=== PATIENT | female | born 1990 | race Caucasian/White ===

== ENCOUNTER 2021-03-23 15:48 | Emergency (ER) | payer OTHER ==
[~2021-03-23] VITALS: Ht 162.6 cm; Wt 66.8 kg
--- NOTE | 2021-03-23 16:28 | REP ---
INDICATION: fall/unwitnessed. COMPARISON: None. TECHNIQUE: Helical scanning is acquired and overlapping 2 mm high resolution axial images were generated and reviewed at bone and soft tissue window settings. Coronal and sagittal multiplanar re-formations images are generated. FINDINGS: There is no evidence of cervical spine element fracture. No skull base fracture is seen. Cervical vertebral body heights are preserved. Alignment is normal. Facet joints are normally aligned bilaterally at each cervical level on multiplanar re-formations images. There is no evidence of intraspinal or paraspinal hematoma. No extra vertebral abnormality is seen. IMPRESSION: Negative CT study of the cervical spine without contrast. No fracture seen. <Electronically signed by Goran Lipscomb > 03/23/21 [id number]
--- NOTE | 2021-03-23 16:49 | REP ---
INDICATION: syncope/unwitnssed. COMPARISON: None. TECHNIQUE: Helical scanning is acquired. 5 mm axial images were reformatted. Coronal MPR images were generated. FINDINGS: Bone window settings demonstrate an intact bony calvarium. There is no evidence of skull fracture or incidental bony calvarial lesion. The visualized paranasal sinuses appear clear. No intraorbital abnormality is seen. On soft tissue window settings, the lateral, 3rd and 4th ventricles are normal in size and position. There is a heterogeneous mixed density lesion in the left parietal lobe most consistent with a cavernous angioma. There are 2 focal calcifications and there is increased density in the lesion which may reflect petechial hemorrhage. There is no visible surrounding edema. No other intracranial lesion is seen. Nieto-white differentiation pattern is otherwise intact. 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 Recommend MRI scanning without and with IV gadolinium. The lesion is partially hyperattenuating consistent with petechial hemorrhage.. <Electronically signed by Goran Lipscomb > 03/23/21 [id number]
[2021-03-23] MEDS ORDERED: NS 1,000 ML IV SCH (17:20)
[2021-03-23] MEDS ORDERED: dexameTHASONE 20MG/5ML VIAL (J1100 PER 1MG) IV ONE (17:25)
[2021-03-23] MEDS ORDERED: levETIRAcetam INJection 1,000 MG in D5W 100 ML IV ONE (17:25)
[2021-03-23 17:50] LABS: BASO % 0.3 % (0.0-1.0); EOS # 0.1 10^3/uL (0.0-0.5); EOS % 1.7 % (0.0-3.0); HEMATOCRIT 40.7 % (36.0-47.0); HEMOGLOBIN 13.3 g/dl (12.0-15.5); LYMPH # 3.2 10^3/uL (1.5-5.0); LYMPH % 53.5 % (24.0-44.0); MEAN CORPUSCULAR HEMOGLOBIN 30.4 pg (27.0-33.0); MEAN CORPUSCULAR HGB CONC 32.7 g/dl (32.0-36.5); MEAN CORPUSCULAR VOLUME 93.1 fl (80.0-96.0); MONO # 0.4 10^3/uL (0.0-0.8); NEUTROPHILS # 2.3 10^3/uL (1.5-8.5); NEUTROPHILS % 38.3 % (36.0-66.0); PLATELET COUNT, AUTOMATED 286 10^3/uL (150-450); RED BLOOD COUNT 4.37 10^6/uL (4.00-5.40)
[2021-03-23 18:01] LABS: INR 0.97; PARTIAL THROMBOPLASTIN TIME 27.2 SECONDS (24.2-38.5); PROTHROMBIN TIME 13.1 SECONDS (12.5-14.3)
[2021-03-23 18:14] LABS: HCG, SERUM QUALITATIVE NEGATIVE (NEGATIVE)
[2021-03-23 18:21] LABS: BLOOD UREA NITROGEN 9 MG/DL (7-18); CALCIUM LEVEL 8.1 MG/DL (8.5-10.1); CARBON DIOXIDE LEVEL 29 MEQ/L (21-32); CHLORIDE LEVEL 113 MEQ/L (98-107); CK-MB VALUE MASS 1.1 NG/ML (<3.6); CPK CREATINE PHOSPHOKINASE 121 U/L (26-192); CREATININE FOR GFR 0.62 MG/DL (0.55-1.30); FREE T4 0.84 NG/DL (0.76-1.46); GLOMERULAR FILTRATION RATE > 60.0 (>60); GLUCOSE, FASTING 82 MG/DL (70-100); MB/CK RELATIVE INDEX 0.91 (< OR =4); SODIUM LEVEL 146 MEQ/L (136-145); THYROID STIMULATING HORMONE 0.513 uIU/ML (0.358-3.740); TROPONIN I < 0.02 NG/ML (< 0.10)
--- NOTE | 2021-03-23 18:28 | REP ---
INDICATION: syncope. COMPARISON: None TECHNIQUE: . The technique utilized in obtaining the radiograph has magnified the cardiac silhouette and attenuated the interstitial markings. FINDINGS: The superior mediastinal structures are midline. The heart is not enlarged. The diaphragmatic surfaces of the lungs are regular and the costophrenic angles are clear. The pulmonary brown are clear. The visualized osseous structures are intact. IMPRESSION: There is no acute cardiopulmonary disease. <Electronically signed by Raudel West > 03/23/21 [id number]
[2021-03-23 18:45] VITALS: BP 112/69
--- NOTE | 2021-03-24 20:22 | ECGEPIP ---
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
== END 2021-03-23 18:50 | disposition short-term general hospital (02) ==
LOC: M ED 15:48
DX: R55 Syncope and collapse (principal); I62.9 Nontraumatic intracranial hemorrhage, unspecified; Z91.048 Other nonmedicinal substance allergy status
CPT/HCPCS: 36415; 70450; 71045; 72125; 80048; 82550; 82553; 84439; 84443; 84484; 84703; 85025; 85610; 85730; 86850; 86900; 86901; 87798; 93005; 93041; 94760; 96365; 96375; 99285; J1100; J1953

== ENCOUNTER → 2022-03-21 | Outpatient (REF) | LOC: M PLALAB 12:24 | PROVIDERS: ATTEND Internal Medicine | DX: R06.02 Shortness of breath (principal) ==